=== PATIENT | male | born 1935 | race Caucasian/White ===

== ENCOUNTER 2016-12-27 15:29 | Inpatient (IN) | payer MEDICARE ==
[~2016-12-27] VITALS: Ht 172.7 cm; Wt 71.4 kg
[~2016-12-27 15:29] MED LIST: ACET-2247 PO; ALBU8HFA IH; ALLO100T PO; AMLO-511 PO; DSS100 PO; HEP5KI SQ; HYDR-3965 PO; IPRNEB IH; LACT30L PO; PANT40TA25 PO; SIMV20 PO
[2016-12-27] MEDS ORDERED: SERT25TA PO (16:27)
[2016-12-27] MEDS ORDERED: RISP1TAB89 PO (16:27)
[2016-12-27] MEDS ORDERED: ASPI81TA2 PO (16:27)
[2016-12-27 18:51] LABS: APPEARANCE,URINE TURBID (CLEAR); GLUCOSE, URINE (UA) NEGATIVE (NEGATIVE); KETONES,URINE NEGATIVE (NEGATIVE); LEUKOCYTE ESTERASE ,URINE LARGE (NEGATIVE); PH,URINE 6.5 (5.0-8.0); PROTEIN,URINE SEE CONFIRM (NEGATIVE)
[2016-12-27 19:21] LABS: ADD UA MICROSCOPIC YES; OCCULT BLOOD,URINE MODERATE (NEGATIVE); SULFOSALICYLIC ACID,URINE 3+ (Negative); WBC,URINE Full Field /HPF (0-5)
[2016-12-27] MEDS ORDERED: 0.9% SODIUM CHLORIDE 10 ML SYRINGE IVP PRN (19:30)
[2016-12-27 19:45] LABS: BASOPHILS % (AUTO) 0.4 % (0.0-2.0); EOSINOPHILS % (AUTO) 0.2 % (1.0-6.0); HEMATOCRIT 42.7 % (41-53); HEMOGLOBIN 13.8 g/dL (13.5-17.5); LYMPHOCYTES # (AUTO) 1.9 K/uL (1.0-4.8); LYMPHOCYTES % (AUTO) 12.6 % (22.0-44.0); MEAN CORPUSCULAR HEMOGLOBIN 28.2 pg (26.0-34.0); MEAN CORPUSCULAR HGB CONC 32.4 G/dL (31.0-37.0); MEAN CORPUSCULAR VOLUME 87 fL (80-100); MONOCYTES # (AUTO) 1.1 K/uL (0.1-1.0); MONOCYTES % (AUTO) 7.4 % (2.0-9.0); NEUTROPHILS # (AUTO) 11.8 K/uL (1.8-7.7); NEUTROPHILS % (AUTO) 79.4 % (40.0-70.0); PLATELET COUNT (AUTO) 255 K/uL (150-450); RED BLOOD CELL COUNT(AUTO) 4.91 MIL/uL (4.50-5.90); RED CELL DISTRIBUTION WIDTH 16.8 % (11.5-14.5); WHITE BLOOD COUNT (AUTO) 14.9 K/uL (4.5-11.0)
[2016-12-27] MEDS ORDERED: ONDANSETRON HCL 4 MG/2 ML VIAL IVP PRN (19:45)
[2016-12-27] MEDS ORDERED: ACETAMINOPHEN 325 MG TABLET PO PRN (19:45)
[2016-12-27] MEDS ORDERED: PIPERACILLIN/TAZO 3.375 GM/D5W 50 ML IV ONE (19:45)
[2016-12-27 19:56] LABS: CREATININE 1.18 mg/dL (0.60-1.30); POTASSIUM 4.3 mmol/L (3.5-5.1)
[2016-12-27 20:02] LABS: ALBUMIN 3.2 g/dL (3.4-5.0); BILIRUBIN,TOTAL 0.6 mg/dL (0.1-1.0); TOTAL PROTEIN, SERUM 7.2 g/dL (6.4-8.2)
[2016-12-27 20:04] LABS: LACTIC ACID 1.3 mmol/L (0.4-2.0)
[2016-12-27 22:51] VITALS: BP 116/64
[2016-12-28] MEDS ORDERED: IPRATROPIUM BROMIDE 0.5 MG/2.5 ML NEB SOLUTION NEB PRN
[2016-12-28] MEDS ORDERED: ACETAMINOPHEN 325 MG TABLET PO PRN
[2016-12-28] MEDS ORDERED: ALBUTEROL SULFATE HFA 90 MCG/PUFF 8 GM INHALER IH PRN
[2016-12-28] MEDS ORDERED: SODIUM CHLORIDE 0.9% 1,000 ML IV ONE (01:34)
[2016-12-28] MEDS: PIPERACILLIN/TAZO 3.375 GM/D5W 50 ML IV SCH ×4 (01:43→19:47)
[2016-12-28 04:00] VITALS: BP 107/64
[2016-12-28 06:08] LABS: BASOPHILS # (AUTO) 0.04 K/uL (0.00-0.20); BASOPHILS % (AUTO) 0.3 % (0.0-2.0); EOSINOPHILS % (AUTO) 0.84 % (1.0-6.0); HEMATOCRIT 40.4 % (41-53); HEMOGLOBIN 13.4 g/dL (13.5-17.5); LYMPHOCYTES # (AUTO) 2.1 K/uL (1.0-4.8); LYMPHOCYTES % (AUTO) 17.8 % (22.0-44.0); MEAN CORPUSCULAR HEMOGLOBIN 29.3 pg (26.0-34.0); MEAN CORPUSCULAR HGB CONC 33.2 G/dL (31.0-37.0); MEAN CORPUSCULAR VOLUME 88 fL (80-100); MONOCYTES # (AUTO) 0.8 K/uL (0.1-1.0); MONOCYTES % (AUTO) 6.4 % (2.0-9.0); NEUTROPHILS # (AUTO) 8.9 K/uL (1.8-7.7); NEUTROPHILS % (AUTO) 74.7 % (40.0-70.0); PLATELET COUNT (AUTO) 214 K/uL (150-450); RED BLOOD CELL COUNT(AUTO) 4.59 MIL/uL (4.50-5.90); RED CELL DISTRIBUTION WIDTH 17.1 % (11.5-14.5); WHITE BLOOD COUNT (AUTO) 11.9 K/uL (4.5-11.0)
[2016-12-28 06:58] LABS: BILIRUBIN,TOTAL 0.9 mg/dL (0.1-1.0); CALCIUM, TOTAL 8.6 mg/dL (8.8-10.5); CREATININE 1.2 mg/dL (0.60-1.30); POTASSIUM 4.1 mmol/L (3.5-5.1); TOTAL PROTEIN, SERUM 6.8 g/dL (6.4-8.2)
[2016-12-28 07:43] VITALS: BP 116/74
[2016-12-28] MEDS: PANTOPRAZOLE SODIUM 40 MG DR TABLET PO SCH (08:05)
[2016-12-28] MEDS: DOCUSATE SODIUM 100 MG CAPSULE PO SCH ×2 (08:05→19:47)
[2016-12-28] MEDS: ASPIRIN 81 MG CHEWABLE TABLET PO SCH (08:05)
[2016-12-28] MEDS: RisperiDONE 1 MG TABLET PO SCH (08:05)
[2016-12-28] MEDS: ALLOPURINOL 100 MG TABLET PO SCH (08:05)
[2016-12-28 09:04] LABS: BAND NEUTROPHILS % (MANUAL) 2 % (1-5); EOSINOPHILS % (MANUAL) 1 % (1-6); LYMPHOCYTES % (MANUAL) 18 % (22-44); TOTAL CELLS COUNTED 100
[2016-12-28 09:05] LABS: RBC MORPHOLOGY COMMENT ABNORMAL R
[2016-12-28 11:20] VITALS: BP 106/62
[2016-12-28] MEDS: AmLODIPine BESYLATE 5 MG TABLET PO SCH (11:30)
[2016-12-28 16:17] VITALS: BP 109/60
[2016-12-28 19:42] VITALS: BP 120/57
[2016-12-28] MEDS: SIMVASTATIN 20 MG TABLET PO SCH (19:47)
[2016-12-28 23:46] VITALS: BP 118/65
[2016-12-29] MEDS: PIPERACILLIN/TAZO 3.375 GM/D5W 50 ML IV SCH ×2 (02:41→07:34)
[2016-12-29 04:49] VITALS: BP 110/62
[2016-12-29] MEDS: ALLOPURINOL 100 MG TABLET PO SCH (07:34)
[2016-12-29] MEDS: AmLODIPine BESYLATE 5 MG TABLET PO SCH (07:34)
[2016-12-29] MEDS: RisperiDONE 1 MG TABLET PO SCH (07:34)
[2016-12-29] MEDS: DOCUSATE SODIUM 100 MG CAPSULE PO SCH ×2 (07:35→20:18)
[2016-12-29] MEDS: PANTOPRAZOLE SODIUM 40 MG DR TABLET PO SCH (07:35)
[2016-12-29] MEDS: ASPIRIN 81 MG CHEWABLE TABLET PO SCH (07:35)
[2016-12-29 07:40] VITALS: BP 121/67
[2016-12-29 11:05] VITALS: BP 120/64
[2016-12-29 13:50] LABS: HEMOGLOBIN 12.4 g/dL (13.5-17.5); MEAN CORPUSCULAR HEMOGLOBIN 28.4 pg (26.0-34.0); MEAN CORPUSCULAR HGB CONC 31.8 G/dL (31.0-37.0); MEAN CORPUSCULAR VOLUME 89 fL (80-100); PLATELET COUNT (AUTO) 184 K/uL (150-450); RED BLOOD CELL COUNT(AUTO) 4.38 MIL/uL (4.50-5.90); RED CELL DISTRIBUTION WIDTH 16.6 % (11.5-14.5)
[2016-12-29 13:55] LABS: WHITE BLOOD COUNT (AUTO) 12.4 K/uL (4.5-11.0)
[2016-12-29 14:08] LABS: CALCIUM, TOTAL 8.4 mg/dL (8.8-10.5); CREATININE 1.2 mg/dL (0.60-1.30); POTASSIUM 4.1 mmol/L (3.5-5.1)
[2016-12-29] MEDS: CefTRIAXone 1 GM/DEXTROSE 50 ML IV SCH (14:15)
[2016-12-29 14:23] LABS: LYMPHOCYTES % (MANUAL) 22 % (22-44); RBC MORPHOLOGY COMMENT ABNORMAL RBC MORPH; TOTAL CELLS COUNTED 100
[2016-12-29 15:00] VITALS: BP 119/56
[2016-12-29 19:54] VITALS: BP 139/69
[2016-12-29] MEDS: SIMVASTATIN 20 MG TABLET PO SCH (20:18)
[2016-12-29 23:21] VITALS: BP 127/61
[2016-12-30 05:55] VITALS: BP 130/71
[2016-12-30 08:11] VITALS: BP 126/53
[2016-12-30] MEDS: PANTOPRAZOLE SODIUM 40 MG DR TABLET PO SCH (08:19)
[2016-12-30] MEDS: AmLODIPine BESYLATE 5 MG TABLET PO SCH (08:19)
[2016-12-30] MEDS: RisperiDONE 1 MG TABLET PO SCH (08:19)
[2016-12-30] MEDS: DOCUSATE SODIUM 100 MG CAPSULE PO SCH (08:19)
[2016-12-30] MEDS: ALLOPURINOL 100 MG TABLET PO SCH (08:19)
[2016-12-30] MEDS: ASPIRIN 81 MG CHEWABLE TABLET PO SCH (08:24)
[2016-12-30] MEDS ORDERED: CEFX1I IM (10:42)
[2016-12-30 11:05] VITALS: BP 119/61
[2016-12-30] MEDS: CefTRIAXone 1 GM/DEXTROSE 50 ML IV SCH (13:34)
[2016-12-30 15:43] VITALS: BP 137/65
== END 2016-12-30 16:10 | disposition home or self-care (01) | DRG 699 ==
LOC: EMS 15:32 → 6N 20:38
PROVIDERS: ADMIT Internal Medicine; ATTEND Internal Medicine
DX: T83.098A Other mechanical complication of other urinary catheter, initial encounter (principal); N39.0 Urinary tract infection, site not specified; E44.0 Moderate protein-calorie malnutrition; J44.9 Chronic obstructive pulmonary disease, unspecified; M10.9 Gout, unspecified; K59.00 Constipation, unspecified; I10 Essential (primary) hypertension; F41.9 Anxiety disorder, unspecified; I25.10 Atherosclerotic heart disease of native coronary artery without angina pectoris; F32.9 Major depressive disorder, single episode, unspecified; K21.9 Gastro-esophageal reflux disease without esophagitis; E78.5 Hyperlipidemia, unspecified; K74.60 Unspecified cirrhosis of liver; E86.0 Dehydration; N40.1 Benign prostatic hyperplasia with lower urinary tract symptoms; R33.8 Other retention of urine; B96.4 Proteus (mirabilis) (morganii) as the cause of diseases classified elsewhere; Z79.82 Long term (current) use of aspirin; Z79.899 Other long term (current) drug therapy; Z79.891 Long term (current) use of opiate analgesic; Z95.1 Presence of aortocoronary bypass graft; Z87.891 Personal history of nicotine dependence; Z86.718 Personal history of other venous thrombosis and embolism; Y93.89 Activity, other specified; Y92.89 Other specified places as the place of occurrence of the external cause; Y99.8 Other external cause status
CPT/HCPCS: 83605; 85007; 87040; 87086; 96365; 99285; J0696; J2543; J7030